=== PATIENT | male | born 1930 | race Asian ===

== ENCOUNTER 2017-01-10 08:49 | Inpatient (IN) | payer OTHER, MEDICARE ==
[~2017-01-10] VITALS: Ht 165.1 cm; Wt 70.3 kg
--- NOTE | 2017-01-10 08:50 | NUR ---
PT BIBA TO BED 4 AT THIS TIME.
[2017-01-10 08:55] VITALS: BP 110/55
--- NOTE | 2017-01-10 09:00 | NUR ---
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 PT DENIES FALL OR LOC; PER [facility], [facility] STAFF STATES PT HAD " 200ML OF BLOOD LOSS FROM THE RECTUM"; PT STATES RECENTLY ADMITTED AT [facility] ON 12/19/16 AND TAKEN TO [facility] FOR SEPSIS/ANTIBIOTIC TX; PT NOTED W/ PICC LINE EST. AT [facility] TO LEFT UPPER ARM; PT A&OX4, BL LUNG SOUNDS CLEAR, RR EVEN/UNLABORED AT THIS TIME; PT DENIES N/V AT THIS TIME; PT STATES HAD 3 EPISODES OF DIARRHEA, BUT UNSURE IF BLOOD WAS PRESENT; ABDOMEN SOFT, NON-TENDER, ACTIVE BOWEL SOUNDS X 4 QUADRANTS; HX: PEPTIC ULCER/RENAL CACULI; PT NOTED W/ DRYNESS TO BL HEELS; PT DENIES PAIN AT THIS TIME; STATES AMBULATES W/ WALKER; PT PLACED ON MONITOR, RESTING IN BED W/ HOB ELEVATED AND IN LOWEST POSITION; POSITIONED FOR COMFORT; ER MD MADE AWARE OF STATUS. WILL CONTINUE TO MONITOR. Addendum: 01/10/17 at 0927 by MED PT NOTED W/ TACHYCARDIA ON THE MONITOR; WILL CONTINUE TO MONITOR.
[2017-01-10] MEDS ORDERED: NACL 0.9% 1,000 ML IV SCH (09:09)
[2017-01-10] MEDS ORDERED: ASPIRIN81 M1 PO (09:15)
[2017-01-10] MEDS ORDERED: LOPRESSOR25 MG PO (09:15)
[2017-01-10] MEDS ORDERED: [UNRECOGNIZED DRUG - CODE] PO (09:15)
[2017-01-10] MEDS ORDERED: FLAGYL IV (09:15)
[2017-01-10] MEDS ORDERED: MILK OF MA400 MG/5 M PO (09:15)
[2017-01-10] MEDS ORDERED: [UNRECOGNIZED DRUG - MIXTURE] IV (09:15)
[2017-01-10] MEDS ORDERED: ACETAMINOPHEN PO (09:15)
[2017-01-10] MEDS ORDERED: AMIODARONE HCL100 MG PO (09:15)
[2017-01-10] MEDS ORDERED: PRILOSEC20 M2 PO (09:15)
[2017-01-10] MEDS ORDERED: FLEET ENEMA 13133 ML RC (09:15)
[2017-01-10] MEDS ORDERED: POTASSIUM CHLO10 ME4 PO (09:15)
[2017-01-10] MEDS ORDERED: DULCOLAX10 M2 RC (09:15)
[2017-01-10] MEDS ORDERED: ALBUTEROL SULFAT3 M1 IH (09:15)
[2017-01-10] MEDS ORDERED: COLACE100 M1 PO (09:15)
--- NOTE | 2017-01-10 09:22 | NUR ---
LAB DRAWING BLOOD AT BEDSIDE AT THIS TIME.
--- NOTE | 2017-01-10 09:22 | NUR ---
XRAY AT BEDSIDE AT THIS TIME.
--- NOTE | 2017-01-10 09:32 | NUR ---
PT STATES PICC LINE ESTABLISHED AT [facility] TO LEFT UPPER ARM X 1 WEEK AGO; TWO PORTS, 18 G, FLUSHED W/ 10 CC OF NORMAL SALINE; BOTH PORTS FLUSHABLE, PATENT; PT DENIES PAIN TO SITE; NO REDNESS, SWELLING OR INFLAMMATION NOTED TO SITE AT THIS TIME. IV FLUIDS 0.9 % SODIUM CHLORIDE ADMINISTERED PER ER MD DR. MCCORMACK ORDER; PT TOLERATING WELL. VSS STABLE AT THIS TIME; WILL CONTINUE TO MONITOR.
--- NOTE | 2017-01-10 09:34 | NUR ---
DAUGHTER AT BEDSIDE; VSS AT THIS TIME; RR EVEN/UNLABORED; WILL CONTINUE TO MONITOR.
--- NOTE | 2017-01-10 10:00 | NUR ---
Note undone in EDM - 01/10/17 at 1019 by MEDSS PT NOTED W/ DARK BLOOD FROM RECTUM ER MD DR. MCCORMACK NOTIFIED; VSS AT THIS TIME. PT DENIES PAIN AT THIS TIME. WILL CONTINUE TO MONITOR.
--- NOTE | 2017-01-10 10:02 | NUR ---
PT NOTED W/ DARK BLOOD FROM RECTUM WHILE W/C ASSISTED TO RESTROOM; ER MD DR. MCCORMACK NOTIFIED; VSS AT THIS TIME. PT DENIES PAIN AT THIS TIME. WILL CONTINUE TO MONITOR.
--- NOTE | 2017-01-10 10:34 | NUR ---
PT APPEARS TO BE SLEEPING COMFORTABLY IN BED; RR EVEN/UNLABORED; WILL CONTINUE TO MONITOR.
--- NOTE | 2017-01-10 10:54 | NUR ---
CALLED [facility] TO GIVE REPORT; MONITOR STATED WILL CALL BACK.
--- NOTE | 2017-01-10 11:00 | NUR ---
JUST RECEIVED REPORT FROM DEB MARINA IN ER. PT WILL BE COMING UP IN 10 MIN. GOT ROOM READY FOR PT TO ARRIVE. WILL BE WAITING FOR PT.
--- NOTE | 2017-01-10 11:01 | NUR ---
REPORT GIVEN TO DEB OBANDO; REQUESTED 10 MINUTES TO PREPARE PT ROOM; WILL CONTINUE TO MONITOR.
--- NOTE | 2017-01-10 11:13 | NUR ---
UNABLE TO TRANSFER PT AT THIS TIME D/T CONSTRUCTION. WILL CONTINUE TO MONITOR.
--- NOTE | 2017-01-10 11:30 | NUR ---
Patient will be admitted to care of DR. MONK. Admited to TELEMETRY. Will go to room 113. Belongings list completed. Report to DEB OBANDO.
--- NOTE | 2017-01-10 11:30 | NUR ---
PT ARRIVED ON THE FLOOR WITH 2 ER NURSES. PT IS ACCOMPANIED BY THE SON. PT IS ALERT AND ORIENTED. PT SPEAKS FIJIAN WELL. PT HAS A NC 2L O2. PT HAS A PICC LINE ON L AC, 2 LUMEN, 18G. PT DENIES ANY PAIN. SKIN IS INTACT. JUST THE HEELS ARE DRY. V/S WITHIN NORMAL LIMITS. PT IS ON TELE MONITOR. PER SON, PT IS ALLERGIC TO SHRIMP. I ADMINISTERED AN ALLERGY BAND AND FALL RISK BAND. PT HAS GENERALIZED WEAKNESS. DAUGHTER JUST ARRIVED. PT NORMALLY LEAVES AT HOME. PT HAS BEEN AT [place] AND RECENTLY AT A SNF/REHAB. I PUT ON YELLOW SOCKS, ADMINISTERED THE NARES SWAB. GOT HIM SITUATED AND LEFT PT WITH FAMILY. WILL CONTINUE TO MONITOR PT.
[2017-01-10 11:45] VITALS: BP 103/59
--- NOTE | 2017-01-10 13:36 | NUR ---
PT IS IN BED SLEEPING. FAMILY AT BEDSIDE. DR. MONK CAME AND SAW PT. REQUESTED DR. CANTOR FOR CONSULT. ADVISED FAMILY, NEXT TIME HE HAS A BOWEL MOVEMENT, WE NEED TO TAKE SAMPLE FOR C-DIFF. FAMILY IS AWARE.
[2017-01-10] MEDS: DEXT 5% / NACL 0.45% 1,000 ML IV SCH (13:45)
[2017-01-10] MEDS ORDERED: DOCUSATE SODIUM 250 MG GELCAP PO PRN (13:50)
[2017-01-10] MEDS ORDERED: BISACODYL 10 MG SUPP RC PRN (13:50)
[2017-01-10] MEDS ORDERED: diphenhydrAMINE 50 MG/ML VIAL IVP PRN (13:50)
[2017-01-10] MEDS ORDERED: ONDANSETRON 4 MG/2 ML VIAL IVP PRN (13:50)
[2017-01-10] MEDS ORDERED: ACETAMINOPHEN 325 MG TAB PO PRN (13:50)
[2017-01-10] MEDS ORDERED: MAGNESIUM OXIDE 400 MG TAB PO PRN (13:50)
[2017-01-10] MEDS ORDERED: ALBUTEROL 0.083% 2.5 MG/3 ML NEBU INH PRN (13:50)
[2017-01-10] MEDS ORDERED: IPRATROPIUM 0.02% 0.5 MG/2.5 ML NEBU INH PRN (13:50)
[2017-01-10] MEDS ORDERED: MORPHINE SULFATE 2 MG/ML SYR IVP PRN (13:50)
[2017-01-10] MEDS ORDERED: POTASSIUM CHLORIDE 40 MEQ, LIDOCAINE 1% 25 MG in NACL 0.9% 250 ML IV PRN (13:50)
[2017-01-10] MEDS ORDERED: SODIUM PHOSPHATE 118 ML ENEM RC PRN (13:50)
[2017-01-10] MEDS ORDERED: MAG SULF 2000 MG/WATER PREMIX 50 ML IV PRN (13:50)
[2017-01-10] MEDS ORDERED: ALUMINUM HYD/MAG/SIMETHICONE 30 ML UDC PO PRN (13:50)
[2017-01-10] MEDS ORDERED: HYDROcodone/APAP 5/325 MG 1 TAB TAB PO PRN ×2 (13:50)
[2017-01-10] MEDS ORDERED: ACETAMINOPHEN 650 MG SUPP RC PRN (13:50)
[2017-01-10] MEDS ORDERED: POTASSIUM CHLORIDE 10 MEQ TABER PO PRN (13:50)
[2017-01-10] MEDS ORDERED: guaiFENesin DM 200/20 MG-10 ML 10 ML UDC PO PRN (13:50)
[2017-01-10] MEDS ORDERED: LORazepam 2 MG/ML VIAL IVP PRN (13:50)
[2017-01-10] MEDS ORDERED: cloNIDine 0.1 MG TAB PO PRN (13:50)
[2017-01-10] MEDS ORDERED: LEVOFLOXACIN 500 MG/D5W PREMIX 100 ML IV SCH (13:55)
[2017-01-10 16:00] VITALS: BP 116/55
--- NOTE | 2017-01-10 16:00 | NUR ---
PT JUST RESTING. PT LOOKING PALE. V/S WITHIN NORMAL RANGE. O2 AT 100% . DAUGHTER ANXIOUS ABOUT FATHER'S CONDITION. GOT AN ORDER FOR BLOOD TRANSFUSION. GOT THE CONSENT SIGNED BY DAUGHTER. IN CHART. STARTED IV D5 1/2 NS AT 50ML. WILL CONTINUE TO MONITOR PT.
[2017-01-10] MEDS: METRONIDAZOLE IV SCH (17:57)
[2017-01-10] MEDS: SODIUM CHLORIDE IV SCH (17:57)
--- NOTE | 2017-01-10 18:00 | NUR ---
GAVE FULL REPORT TO DEB GORDILLO IN ICU. WILL GATHER CHART, CRASH CART MONITOR, OXYGEN TANK AND PERSONAL BELONGINGS AND WILL TAKE PT TO ICU. GOT CONSENT FOR THE EGD AND THE TRANSFUSION. IN CHART.
--- NOTE | 2017-01-10 18:00 | NUR ---
PT RESTING IN BED. MORE ALERT THAN PRIOR. PT DID WANT TO EAT. AFRAID OF HAVING A BM. ENCOURAGE PT TO TRY AND EAT. FAMILY STILL AT BEDSIDE. WAITING TO BE TRANSFERRED TO ICU.
--- NOTE | 2017-01-10 18:25 | NUR ---
LAB CALLED. BLOOD FOR TRANSFUSION READY. WILL ENDORSE TO ICU NURSE.
--- NOTE | 2017-01-10 18:30 | NUR ---
TRANSPORTED PT TO ICU. ENDORSED PT TO ALMA SUPERVISOR FINISHING ROOM. FAMILY MEMBER WAITING OUTSIDE OF ICU WHILE PT GETS SITUATED. PT IN STABLE CONDITION.
--- NOTE | 2017-01-10 18:50 | NUR ---
PT ARRIVED TO UNIT VIA TELEMETRY BED. PT IS AAOX4. NO SIGNS OF ACUTE DISTRESS OR C/O PAIN AT THIS TIME. PT IS ON O2 2L/MIN NC. PICC LINE TO LEFT UPPER ARM x2 LUMEN. SKIN IS INTACT. SAFETY PRECAUTIONS IN PLACE WITH BED IN LOWEST POSITION AND SIDE RAILS UP. PT IS CURRENTLY SINUS TACHYCARDIA ON THE MONITOR. CALL LIGHT WITHIN REACH. ALL VSS. TEMP: 98.1, HR: 124, BP: 94/61. O2: 100, RR: 23WILL CONTINUE TO MONITOR.
--- NOTE | 2017-01-10 19:09 | NUR ---
ENDORSED CARE TO DEB ANGELA. PT IN STABLE CONDITION.
--- NOTE | 2017-01-10 19:10 | NUR ---
RECEIVED REPORT FROM DEB MARQUEZ. AT BED SIDE. PT IS AAOX4, ABLE TO FOLLOW COMMANDS AND MAKE NEEDS KNOWN. DENIES PAIN. NO SIGNS OF SOB/ACUTE DISTRESS, BREATHING EVEN AND UNLABORED, CRACKLES HEARD ON BLL, ON O2 2L/MIN NC. A-FIB ON MONITOR. SOFT ABD, NON-TENDER, HYPOACTIVE BOWEL SOUNDS. PICC LINE TO LEFT UPPER ARM x2 LUMEN, C/D/I, PATENT, RUNNING D5 1/2 NC AT 100ML/HR. AFEBRILE, SKIN IS WARM AND DRY IN TOUCH, AND INTACT. ABLE TO MOVE ALL EXTREMITIES. SAFETY PRECAUTIONS IN PLACE WITH BED IN LOW POSITION AND SIDE RAILS UP. CALL LIGHT WITHIN REACH. VSS. WILL CONTINUE TO MONITOR.
--- NOTE | 2017-01-10 19:50 | NUR ---
PT HAD A LIQUID MODERATE BLOODY STOOL, KOBE CARE PROVIDED, PT'S DAUGHTER AT BEDSIDE.
[2017-01-10 20:00] VITALS: BP 99/74
[2017-01-10] MEDS ORDERED: PIPERACILLIN/TAZOBACTAM 3.375 GM VIAL IV ONE (20:07)
[2017-01-10] MEDS ORDERED: VANCOMYCIN 500 MG VIAL ONE (20:15)
[2017-01-10] MEDS: VANCOMYCIN 500 MG VIAL PO SCH (20:30)
--- NOTE | 2017-01-10 20:30 | NUR ---
SCHEDULED MEDICATION GIVEN, PT TOLERATED WELL, PT ABLE TO CHANGE POSITION SELF AT THIS TIME.
[2017-01-10] MEDS ORDERED: WATER STERILE 20 ML MC ONE (20:31)
[2017-01-10] MEDS: PIPER/TAZO 3.375GM/D5W PREMIX 50 ML IV SCH (20:36)
[2017-01-10] MEDS: PANTOPRAZOLE 40 MG INJ VIAL IVP SCH (20:36)
[2017-01-10] MEDS ORDERED: ZOLPIDEM 5 MG TAB PO PRN (21:00)
--- NOTE | 2017-01-10 21:35 | NUR ---
FIRST UNIT OF RED BLOOD CELL TRANSFUSION STARTED, PT TOLERATED WELL, VSS. WILL CONTINUE TO MONITOR.
[2017-01-10 22:00] VITALS: BP 105/61
[2017-01-11] VITALS (16 sets, daily range): BP systolic 89–128; BP diastolic 44–85
--- NOTE | 2017-01-11 00:10 | NUR ---
FIST UNIT OF BLOOD TRANSFUSION COMPLETED, NO ADVERSE EFFECTS NOTED, VSS. 2ND UNIT OF RED BLOOD CELL TRANSFUSION STARTED, PT IS ABLE TO CHANGE POSITION SELF. HAD ONE TIME DARK GREENISH LIQUID STOOL, KOBE CARE PROVIDED. WILL CONTINUE TO MONITOR.
[2017-01-11] MEDS: VANCOMYCIN 500 MG VIAL PO SCH ×5 (00:23→23:05)
[2017-01-11] MEDS: DEXT 5% / NACL 0.45% 1,000 ML IV SCH ×2 (00:24→10:27)
--- NOTE | 2017-01-11 02:00 | NUR ---
NO CHANGE OF CONDITION AT THIS TIME, VSS.
--- NOTE | 2017-01-11 04:00 | NUR ---
NO CHANGE OF CONDITION AT THIS TIME, AM CARE PROVIDED, VSS.
[2017-01-11] MEDS: PIPER/TAZO 3.375GM/D5W PREMIX 50 ML IV SCH ×3 (05:00→20:30)
--- NOTE | 2017-01-11 06:00 | NUR ---
NO CHANGE OF CONDITION AT THIS TIME.
[2017-01-11] MEDS ORDERED: PIPERACILLIN/TAZOBACTAM 3.375 GM VIAL IV ONE (06:16)
[2017-01-11] MEDS ORDERED: PANTOPRAZOLE 40 MG TABEC PO SCH (06:30)
--- NOTE | 2017-01-11 07:05 | NUR ---
GIVE REPORT TO DEB GORDILLO FOR CONTINUE OF CARE.
--- NOTE | 2017-01-11 07:30 | NUR ---
RECEIVE REPORT FROM COREEN BOYD.PT, IS AWAKE AND ALERT WELL ORIENTED,SKIN DRY WARM TO TOUCH.AND INTACT, ON O2 2L/NC O2 SAT 98% . ABD. SOFT B/S POSITIVE NO DIARRHEA AT THE TIME.. VOID INTO URENAL DARK [facility] URINE,
--- NOTE | 2017-01-11 07:47 | NUR ---
PATIENT HAS BEEN SCREENED AND CATEGORIZED MODERATE NUTRITION RISK. PATIENT WILL BE SEEN WITHIN 3-5 DAYS OF ADMISSION. 01/13/17-01/15/[address]
[2017-01-11] MEDS: PANTOPRAZOLE 40 MG INJ VIAL IVP SCH (08:09)
[2017-01-11] MEDS: AMIODARONE 200 MG TAB PO SCH (08:09)
[2017-01-11] MEDS: SODIUM CHLORIDE IV SCH ×3 (08:09→17:06)
[2017-01-11] MEDS: METRONIDAZOLE IV SCH ×3 (08:09→17:06)
--- NOTE | 2017-01-11 09:20 | NUR ---
DR. MONK INFORM ABOUT PT HAS POSITIVE FOR C.DIFF. PT ALREADY RECEIVED MEDICATION .
[2017-01-11] MEDS ORDERED: PROBIOTIC SCREEN 1 EA MISC MC PRN (09:40)
[2017-01-11] MEDS ORDERED: fentaNYL 0.05 MG/ML VIAL ONE (10:48)
[2017-01-11] MEDS ORDERED: diphenhydrAMINE 50 MG/ML VIAL ONE (10:48)
[2017-01-11] MEDS ORDERED: MIDAZOLAM 2 MG/2 ML VIAL ONE (10:48)
--- NOTE | 2017-01-11 10:52 | NUR ---
CM NOTE INITIAL REVIEW SENT TO [facility] FAX# [phone] PH# RAYO [phone] MARCH [phone]
--- NOTE | 2017-01-11 12:00 | NUR ---
DO EGD AND BIOPSY PROCEDURE, HE FIND NOPUD NO MW TEAR PT. V/S WITH IN NORMAL LIMIT AT THE TIME,.
--- NOTE | 2017-01-11 13:30 | NUR ---
SEEN BY AT BEDSIDE ORDER RECEIVED, PT. WILL DOWN GRADE TO TELE WITH SAME ORDER AND CARE.
--- NOTE | 2017-01-11 14:00 | NUR ---
VISIT BY DAUGHTER AT BEDSIDE, PT IS AWAKE AND ASLERT,
--- NOTE | 2017-01-11 14:45 | NUR ---
CALL TELE GIVE REPORT TO JS BOYD.
--- NOTE | 2017-01-11 15:50 | NUR ---
TRANSFER TO RM 124B IN BED HE STAY AWAKE ,NO DISTRESS NOTE DURING TRANSFER, REPORT GIVE TO JS RN, AT BEDSIDE,
--- NOTE | 2017-01-11 16:00 | NUR ---
RECEIVED PT FROM ICU, PT IS AAO X4, SKIN INTACT, PICC LINE ON LEFT UPPER ARM PATENT AND INTACT INFUSING FLUID WELL, PT IS ABLE TO AMBULATE WITH ASSIST, VITALS STABLE, ORIENTED PT IN THE ROOM AND USE OF CALL LIGHT, SAFETY/FALL PRECAUTION ENFORCED, ALL NEEDS MET AT THIS TIME, CALL LIGHT WITHIN REACH, WILL CONTINUE TO MONITOR.
--- NOTE | 2017-01-11 17:42 | NUR ---
DINNER SERVED, PT HAS GOOD APPETITE, ALL NEEDS MET AT THIS TIME, FAMILY MEMBERS AT BEDSIDE, CALL LIGHT WITHIN REACH, WILL CONTINUE TO MONITOR.
--- NOTE | 2017-01-11 19:12 | NUR ---
ENDORSED PT TO DEB VELASQUEZ FOR CONTINUITY OF CARE. PT IS STABLE AT THIS TIME.
--- NOTE | 2017-01-11 19:15 | NUR ---
RECEIVED PT SITTING AT BEDSIDE CHAIR WITH FAMILY MEMBERS IN THE ROOM, DENIES ANY PAIN, IVF INFUSING WELL VIA LEFT UPPER ARM PICC LINE, DRESSING DRY AND INTACT, MAINTAIN ON CONTACT ISOLATION FOR C-DIFF, POC DISCUSSED, SAFETY MEASURES IN PLACE, CALL LIGHT WITHIN REACH.
--- NOTE | 2017-01-11 20:10 | NUR ---
PT HAD BM WITH SMALL LIQUID GREENISH BLACK STOOL, NO BLEEDING NOTED, PERINEAL CARE DONE, ALL NEEDS ATTENDED.
--- NOTE | 2017-01-11 22:10 | NUR ---
PT VOIDING FREELY PER URINAL, CAN REPOSITION SELF INDEPENDENTLY, MONITORED CLOSELY.
--- NOTE | 2017-01-11 23:30 | NUR ---
DUE PO VANCOMYCIN GIVEN, TOLERATED WELL, VITAL SIGNS STABLE, IVF INFUSING WELL, CONTINUE TO MONITOR CLOSELY.
[2017-01-12] VITALS: BP 106/59
[2017-01-12] MEDS: DEXT 5% / NACL 0.45% 1,000 ML IV SCH ×2 (02:08→07:05)
[2017-01-12 04:00] VITALS: BP 118/70
--- NOTE | 2017-01-12 04:00 | NUR ---
PT SLEEPING, EASILY AROUSABLE, VITAL SIGNS STABLE, A-FIB ON TELE, DENIES ANY PAIN, IVF INFUSING WELL, MONITORED CLOSELY.
[2017-01-12] MEDS: PIPER/TAZO 3.375GM/D5W PREMIX 50 ML IV SCH ×3 (04:17→20:50)
[2017-01-12] MEDS: VANCOMYCIN 500 MG VIAL PO SCH ×3 (06:11→17:31)
--- NOTE | 2017-01-12 06:12 | NUR ---
DUE PO VANCOMYCIN ADMINISTERED, AM LABS DRAWN.
--- NOTE | 2017-01-12 07:05 | NUR ---
ASSISTED TO BR, BM WITH SOFT STOOL, MODERATE AMOUNT, PT PREFER TO SIT ON BEDSIDE CHAIR AT THIS TIME, CALL LIGHT WITHIN REACH, IVF INFUSING WELL.
--- NOTE | 2017-01-12 07:30 | NUR ---
RECEIVED PT SITTING ON CHAIR. ALERT, AWAKE, ORIENTEDX4. BREATHING EVEN AND UNLABORED. DENIES ANY PAIN OR DISCOMFORT AT THIS TIME. PT ON ISOLATION PRECAUTION FOR C-DIFF. POSITIVE BOWEL SOUNDS NOTED ON ALL FOUR QUADRANTS. PT AMBULATORY WITH STAND BY ASSIST. SAFETY PRECAUTION IN PLACE. CALL LIGHT WITHIN REACH.
--- NOTE | 2017-01-12 07:30 | NUR ---
PT AWAKE SITTING ON BEDSIDE CHAIR, REPORT GIVEN TO DEB POWERS FOR CONTINUITY OF CARE.
[2017-01-12 08:00] VITALS: BP 122/59
[2017-01-12] MEDS: SODIUM CHLORIDE IV SCH ×3 (09:17→17:25)
[2017-01-12] MEDS: LACTOBACILLUS RHAMNOSUS GG 1 EACH CAP PO SCH (09:17)
[2017-01-12] MEDS: METRONIDAZOLE IV SCH ×3 (09:17→17:25)
[2017-01-12] MEDS: AMIODARONE 200 MG TAB PO SCH (09:18)
[2017-01-12] MEDS: FUROSEMIDE 20 MG TAB PO SCH (09:18)
[2017-01-12 12:00] VITALS: BP 116/78
[2017-01-12] MEDS: PHARMACY COMMENTS MC SCH ×2 (12:00→18:00)
--- NOTE | 2017-01-12 14:00 | NUR ---
PT IN CHAIR WITH DAUGHTER BY BEDSIDE. DENIES ANY PAIN OR DISCOMFORT. AMBULATES WITH ASSIST GOING TO THE BATHROOM. NO COMPLAINTS OF DIARRHEA OR BLOODY STOOLS NOTED AT THIS TIME.
--- NOTE | 2017-01-12 15:34 | NUR ---
CM NOTE CONCURRENT REVIEW SENT TO [facility] FAX# [phone] PH# RAYO [phone] MARCH [phone]
[2017-01-12 16:00] VITALS: BP 104/71
--- NOTE | 2017-01-12 19:27 | NUR ---
PT ENDORSED TO NEXT SHIFT. ON STABLE CONDITION. PT KEPT CLEAN DRY AND COMFORTABLE NEEDS ATTENDED.
--- NOTE | 2017-01-12 19:47 | NUR ---
RECEIVED FROM AM RN IN BED SLEEPING. WAKES UP EASILY WHEN CALLED BY NAME. CARE PLANS DISCUSSED WITH HIM FOR THE NIGHT. CALL LIGHT WITH IN REACH. NO SOB. DX. GI BLEED AND DIARRHEA. PER AM RN PT. HAD ONLY ONE SOFT BM THIS AM SHIFT. BED ALARM ON . WITH SEQUENTIALS BILATERAL IN PLACE. TELEMETRY MONITORING. WITH HISTORY OF AFIB. IVF TO LEFT UPPER ARM PICC LINE 2 PORTS. INTACT AND NO NOTED INFILTRATION. ABLE TO VERBALIZE NEEDS WELL IN [place].
[2017-01-12 20:52] VITALS: BP 110/78
--- NOTE | 2017-01-12 23:39 | NUR ---
SLEEPING AT THIS TIME. CALL LIGHT WITH IN REACH AT BEDSIDE. NO RESTLESSNESS NOTED.
[2017-01-13 00:16] VITALS: BP 99/60
[2017-01-13] MEDS: PHARMACY COMMENTS MC SCH ×3 (00:16→12:11)
[2017-01-13] MEDS: VANCOMYCIN 500 MG VIAL PO SCH ×3 (00:16→12:11)
--- NOTE | 2017-01-13 00:24 | NUR ---
PT. SLEEPING. WOKE UP WHEN CALLED BY NAME. P.O. MEDICATION TAKEN . TOLERATED WELL. REMINDED TO USE CALL LIGHT FOR ANY HELP HE MAY NEED FOR ANYPAIN HE MIGHT HAVE.
--- NOTE | 2017-01-13 04:10 | NUR ---
SLEEPING. NO RESTLESSNESS NOTED. NO SOB. TELEMETRY MONITORING AND NEEDS MET. ABLE TO USE CALL LIGHT FOR HELP. VERBALIZES WELL.
[2017-01-13] MEDS: PIPER/TAZO 3.375GM/D5W PREMIX 50 ML IV SCH (04:22)
[2017-01-13 04:25] VITALS: BP 99/63
--- NOTE | 2017-01-13 05:48 | NUR ---
PT. BM X 1 THIS SHIFT. SOFT IN CONSISTENCY. ASSISTED TO BRP. ROM X 4. NO PAIN COMPLAINTS DONE THIS SHIFT.
--- NOTE | 2017-01-13 07:13 | NUR ---
RECEIVED PT FROM DEB KINCAID AWAKE AND SITTING ON CHAIR, WATCHING TV, AAOX4 NO S/S OF RESPIRATORY DISCOMFORT ON ROOM AIR, SKIN IS INTACT. WITH PICC LINE ON LEFT UPPER ARM WITH 2 LUMENS, ONE INFUSING FLUIDS WELL AND ONE PATENT AND INTACT. DISCUSSED PLAN OF CARE, PT VERBALIZED UNDERSTANDING. CONTACT PRECAUTIONS ENFORCED. CALL LIGHT WITHIN REACH, WILL CONTINUE TO MONITOR.
[2017-01-13 08:00] VITALS: BP 112/64
[2017-01-13] MEDS: METRONIDAZOLE IV SCH ×3 (08:09→17:00)
[2017-01-13] MEDS: SODIUM CHLORIDE IV SCH ×3 (08:09→17:00)
[2017-01-13] MEDS: FERROUS SULFATE 325 MG TABEC PO SCH ×2 (08:10→17:00)
[2017-01-13] MEDS: FUROSEMIDE 20 MG TAB PO SCH (08:10)
[2017-01-13] MEDS: LACTOBACILLUS RHAMNOSUS GG 1 EACH CAP PO SCH (08:10)
[2017-01-13] MEDS: AMIODARONE 200 MG TAB PO SCH (08:10)
--- NOTE | 2017-01-13 08:11 | NUR ---
DUE MEDS GIVEN, PT TOLERATED WELL. CALL LIGHT WITHIN REACH, WILL CONTINUE TO MONITOR.
--- NOTE | 2017-01-13 10:28 | NUR ---
PT ASLEEP ON BED, NO S/S OF RESPIRATORY DISTRESS. CALL LIGHT WITHIN REACH, WILL CONTINUE TO MONITOR.
--- NOTE | 2017-01-13 11:37 | NUR ---
DR CANTOR AT NURSES' STATION
[2017-01-13 12:00] VITALS: BP 96/57
--- NOTE | 2017-01-13 12:25 | NUR ---
LUNCH SERVED. PER PT HE IS STILL FULL. ENCOURAGED TO EAT. AMBULATING WELL INSIDE THE ROOM. DUE MEDS GIVEN, PT TOLERATED WELL. DR MONK AT NURSES' STATION.
--- NOTE | 2017-01-13 12:48 | NUR ---
PT SITTING ON CHAIR EATING LUNCH, HAS GOOD APPETITE. ALL NEEDS MET, WILL CONTINUE TO MONITOR.
[2017-01-13] MEDS ORDERED: INFLUENZA VIRUS VACCINE QUAD 0.5 ML SYR IMVAC SCH (13:25)
--- NOTE | 2017-01-13 14:28 | NUR ---
PICC LINE REMOVED PER ORDERS, TOLERATED WELL.
[2017-01-13 16:00] VITALS: BP 130/73
--- NOTE | 2017-01-13 16:13 | NUR ---
FLU VACCINE GIVEN. PT SITTING ON CHAIR WATCHING TV. SPOKE TO DAUGHTER OVER THE PHONE REGARDING DISCHARGE, PT WILL BE PICKED UP AT 5PM
--- NOTE | 2017-01-13 17:20 | NUR ---
DISCHARGE PRESCRIPTIONS AND INSTRUCTIONS GIVEN WITH DAUGHTER AT BEDSIDE, PT VERBALIZED UNDERSTANDING. TELE MONITOR AND ID WRISTBAND REMOVED. PT WHEELED OUT VIA WHEELCHAIR ACCOMPANIED BY DAUGHTER IN STABLE CONDITION
== END 2017-01-13 17:20 | disposition home or self-care (01) | DRG 253 ==
LOC: MED 08:49 → MTU 11:02 → MIC 18:45 → MTU 01-11 15:55
PROVIDERS: ADMIT Internal Medicine Pulmonary Disease; ATTEND Internal Medicine Pulmonary Disease
PROC: 30233N1 Transfusion of Nonautologous Red Blood Cells into Peripheral Vein, Percutaneous Approach (ICD-10-PCS; 2017-01-10)
PROC: 0DB68ZX Excision of Stomach, Via Natural or Artificial Opening Endoscopic, Diagnostic (ICD-10-PCS; principal; 2017-01-11 12:20)
DX: K92.2 Gastrointestinal hemorrhage, unspecified (principal); A04.7 Enterocolitis due to Clostridium difficile; I48.91 Unspecified atrial fibrillation; E44.1 Mild protein-calorie malnutrition; E83.42 Hypomagnesemia; E83.51 Hypocalcemia; D62 Acute posthemorrhagic anemia; Z91.013 Allergy to seafood; Z98.890 Other specified postprocedural states; Z79.82 Long term (current) use of aspirin; Z79.899 Other long term (current) drug therapy; Z90.49 Acquired absence of other specified parts of digestive tract; Z68.25 Body mass index [BMI] 25.0-25.9, adult; Z87.11 Personal history of peptic ulcer disease; Z87.442 Personal history of urinary calculi